=== PATIENT | female | born 1970 | race Two or more races ===

== ENCOUNTER 2023-10-24 16:41 | Emergency (ER) | payer OTHER ==
[~2023-10-24] VITALS: Ht 162.6 cm; Wt 38.6 kg
[2023-10-24] MEDS ORDERED: PROTONIX40 M1 PO (16:50)
[2023-10-24 17:51] LABS: HEMATOCRIT 41.6 % (36.0-45.00); HEMOGLOBIN 14.4 g/dL (12.0-15.00); MEAN CELL VOLUME 83.7 fL (80.00-100.00); MEAN CORPUSCULAR HGB CONC 34.6 g/dl (32.0-36.0); PLATELET COUNT 504 K/uL (150-450); RED BLOOD COUNT 4.97 M/uL (4.00-6.00); RED CELL DISTRIBUTION WIDTH 16.1 % (11.5-14.5)
[2023-10-24] MEDS ORDERED: 0.9 % SODIUM CHLORIDE 1,000 ML IV SCH (18:00)
[2023-10-24 18:09] LABS: CALCIUM 10.7 mg/dL (8.5-10.1); CREATININE SERUM 0.51 mg/dL (0.55-1.02); GFR 126.14; POTASSIUM 4.05 mEq/L (3.5-5.1)
[2023-10-24 19:55] LABS: PH,URINE 5.5 (5.0-8.0); URINE APPEARANCE Cloudy; URINE BILIRRUBIN Small (NEGATIVE); URINE BLOOD Negative; URINE COLOR Orange; URINE GLUCOSE Negative (NEGATIVE); URINE LEUKOCYTE Trace; URINE NITRATE Negative; URINE PROTEIN Trace (NEGATIVE)
[2023-10-24 19:58] LABS: URINE BACTERIA 1743.2 uL (0.0-1933); URINE EPITHELIAL CELLS 119.3 uL (0.0-38.8); URINE RBC 11.7 uL (0.0-20.8); URINE WBC 26.5 uL (0.0-23.2)
[2023-10-24] MEDS ORDERED: FAMOTIDINE/PF 20 MG/2 ML VIAL IV PUSH ONE (20:00)
[2023-10-24] MEDS ORDERED: MEPERIDINE HCL/PF 25 MG/ML VIAL IV ONE (20:00)
[2023-10-24] MEDS ORDERED: KETOROLAC TROMETHAMINE 30 MG VIAL IV ONE (20:00)
[2023-10-24 20:16] LABS: URINE MUCUS HEAVY
[2023-10-25] MEDS ORDERED: FAMOTIDINE40 MG PO (00:34)
== END 2023-10-25 00:42 | disposition home or self-care (01) ==
LOC: ER 16:41
PROVIDERS: Emergency Medicine
DX: K52.89 Other specified noninfective gastroenteritis and colitis (principal)